=== PATIENT | male | born 1990 | race Caucasian/White ===

== ENCOUNTER 2023-06-26 15:05 | Emergency (ER) | payer OTHER ==
[2023-06-26 15:14] VITALS: BP 103/64; TEMP 98.7; BMI 20.7
[2023-06-26] MEDS ORDERED: SODIUM CHLORIDE 0.9% 500 ML INFUS.BAG IV ONE (16:58)
[2023-06-26 17:18] LABS: BASO % 1.2 % (0-2.0); EOS % 0.3 % (0-4.5); HEMATOCRIT 40.5 % (35.4-49); HEMOGLOBIN 13.5 GM/dL (11.7-16.9); LYMPH % 20.3 % (8-40); MCH 28.8 pg (25.7-33.7); MCHC 33.3 g/dl (32.0-35.9); MEAN CELL VOLUME 86.5 fl (80-96); MEAN PLT VOLUME 9.3 fl (7.5-11.1); MONO % 12.7 % (3.8-10.2); NEUT % 65.5 % (42.8-82.8); PLATELET COUNT 234 10^3/uL (134-434); RBC 4.68 M/mm3 (4.00-5.60); RDW 13.3 % (11.9-15.9); WHITE BLOOD COUNT 7.2 K/mm3 (4.0-10.0)
[2023-06-26 17:33] LABS: POTASSIUM 4.5 mmol/L (3.5-5.1)
[2023-06-26 17:35] LABS: CALCIUM 9.2 mg/dL (8.5-10.1)
[2023-06-26 17:36] LABS: ALBUMIN 3.4 g/dl (3.4-5.0); MAGNESIUM 1.8 mg/dL (1.8-2.4)
[2023-06-26 17:39] LABS: CREATININE 0.9 mg/dL (0.55-1.3)
[2023-06-26 17:40] LABS: BILIRUBIN,TOTAL 0.7 mg/dL (0.2-1)
[2023-06-26 17:41] LABS: TOT PROT 6.9 g/dl (6.4-8.2)
[2023-06-26 17:47] LABS: N-TERMINAL BNP 3449.3 pg/ml (5-125)
[2023-06-26 19:21] VITALS: PULSE 49; RESP 18
== END 2023-06-26 19:21 | disposition left against medical advice (07) ==
LOC: JER 15:05
DX: R07.9 Chest pain, unspecified (principal); R00.2 Palpitations; R05.9 Cough, unspecified; R09.81 Nasal congestion; R51.9 Headache, unspecified; R53.81 Other malaise; R11.2 Nausea with vomiting, unspecified; I42.0 Dilated cardiomyopathy; Z20.822 Contact with and (suspected) exposure to COVID-19
CPT/HCPCS: 0241U-QW; 36415; 71046-TC-FY; 80053; 83735; 83880; 84484; 85025; 93005; 93010; 99285-25

== ENCOUNTER 2023-08-28 12:17 | Observation (INO) | payer OTHER ==
[2023-08-28] MEDS ORDERED: ADENOSINE 6 MG/2 ML VIAL IVPUSH ONE ×3 (12:28→12:51)
[2023-08-28 12:38] VITALS: BMI 21.3
[2023-08-28] MEDS ORDERED: MIDAZOLAM HCL 2 MG/2 ML SINGLE DOSE VIAL ONE (13:08)
[2023-08-28 13:13] LABS: BASO % 1.1 % (0-2.0); EOS % 4.7 % (0-4.5); HEMATOCRIT 48.8 % (35.4-49); HEMOGLOBIN 16.5 GM/dL (11.7-16.9); LYMPH % 59.4 % (8-40); MCH 28.9 pg (25.7-33.7); MCHC 33.8 g/dl (32.0-35.9); MEAN CELL VOLUME 85.4 fl (80-96); MONO % 4.5 % (3.8-10.2); NEUT % 30.3 % (42.8-82.8); PLATELET COUNT 235 10^3/uL (134-434); RBC 5.71 M/mm3 (4.00-5.60); RDW 14.7 % (11.9-15.9); WHITE BLOOD COUNT 6.5 K/mm3 (4.0-10.0)
[2023-08-28] MEDS: MIDAZOLAM HCL 2 MG/2 ML SINGLE DOSE VIAL IVPUSH ONE (13:14)
[2023-08-28 13:19] LABS: INR 1.09 (0.83-1.09); PROTHROMBIN TIME (PATIENT) 12.6 SEC (9.7-13.0)
[2023-08-28 13:22] LABS: ACTIVATED PTT 30.4 SECONDS (25.2-36.5)
[2023-08-28] MEDS: ADENOSINE 6 MG/2 ML VIAL IVPUSH ONE ×3 (13:24→13:25)
[2023-08-28] MEDS: SODIUM CHLORIDE 0.9% 500 ML INFUS.BAG IV ONE (13:25)
[2023-08-28 13:29] LABS: POTASSIUM 5.5 mmol/L (3.5-5.1)
[2023-08-28 13:31] LABS: BLOOD UREA NITROGEN 22.9 mg/dL (7-18); CALCIUM 9.5 mg/dL (8.5-10.1); MAGNESIUM 2.1 mg/dL (1.8-2.4)
[2023-08-28 13:34] LABS: CREATININE 1.1 mg/dL (0.55-1.3)
[2023-08-28 13:36] LABS: BILIRUBIN,TOTAL 0.6 mg/dL (0.2-1); TOT PROT 7.9 g/dl (6.4-8.2)
[2023-08-28 14:07] LABS: N-TERMINAL BNP 3903.2 pg/ml (5-125)
[2023-08-28 16:38] LABS: COCAINE, UR NEGATIVE (NEGATIVE)
[2023-08-28 16:39] LABS: METHADONE, UR NEGATIVE (NEGATIVE); OPIATES, URI NEGATIVE (NEGATIVE); PHENCYCLIDINE,URINE NEGATIVE (NEGATIVE); URINE AMPHETAMINES NEGATIVE (NEGATIVE); URINE BARBITURATES NEGATIVE (NEGATIVE)
[2023-08-28 16:59] LABS: URINE BENZODIAZEPINES POSITIVE (NEGATIVE)
[2023-08-28] MEDS ORDERED: CARVEDILOL 3.125 MG TABLET (FP) ONE (21:28)
[2023-08-28] MEDS: CARVEDILOL 3.125 MG TABLET (FP) PO SCH (21:32)
[2023-08-29 07:35] LABS: BASO % 0.9 % (0-2.0); EOS % 7.4 % (0-4.5); HEMATOCRIT 40.6 % (35.4-49); HEMOGLOBIN 13.4 GM/dL (11.7-16.9); LYMPH % 44.4 % (8-40); MCH 28.6 pg (25.7-33.7); MCHC 33.1 g/dl (32.0-35.9); MEAN CELL VOLUME 86.5 fl (80-96); MEAN PLT VOLUME 9.8 fl (7.5-11.1); MONO % 6.6 % (3.8-10.2); NEUT % 40.7 % (42.8-82.8); PLATELET COUNT 181 10^3/uL (134-434); RBC 4.69 M/mm3 (4.00-5.60); RDW 14.4 % (11.9-15.9); WHITE BLOOD COUNT 5.9 K/mm3 (4.0-10.0)
[2023-08-29 07:58] LABS: POTASSIUM 3.9 mmol/L (3.5-5.1)
[2023-08-29 08:04] LABS: BLOOD UREA NITROGEN 15.8 mg/dL (7-18); CALCIUM 8.3 mg/dL (8.5-10.1); MAGNESIUM 1.6 mg/dL (1.8-2.4)
[2023-08-29 08:07] LABS: CREATININE 0.9 mg/dL (0.55-1.3)
[2023-08-29 08:22] LABS: ALBUMIN 3.2 g/dl (3.4-5.0)
[2023-08-29] MEDS: ENOXAPARIN NA (PORCINE) 40 MG/0.4 ML DISP.SYRIN SQ SCH (10:15)
[2023-08-29] MEDS: FUROSEMIDE 20 MG TABLET (FP) PO SCH (10:23)
[2023-08-29] MEDS ORDERED: CARVEDILOL 3.125 MG TABLET (FP) ONE (22:02)
[2023-08-30] MEDS: MAGNESIUM 1GM/D5W 100ML - 100 ML IVPB IVPB ONE (00:18)
[2023-08-30 07:28] LABS: BASO % 0.7 % (0-2.0); EOS % 8.3 % (0-4.5); HEMATOCRIT 42.7 % (35.4-49); HEMOGLOBIN 14.7 GM/dL (11.7-16.9); LYMPH % 49.8 % (8-40); MCH 29.3 pg (25.7-33.7); MCHC 34.4 g/dl (32.0-35.9); MEAN CELL VOLUME 85.2 fl (80-96); MEAN PLT VOLUME 10.1 fl (7.5-11.1); MONO % 7.3 % (3.8-10.2); NEUT % 33.9 % (42.8-82.8); PLATELET COUNT 186 10^3/uL (134-434); RBC 5.02 M/mm3 (4.00-5.60); RDW 14.6 % (11.9-15.9); WHITE BLOOD COUNT 5.7 K/mm3 (4.0-10.0)
[2023-08-30 07:36] LABS: POTASSIUM 4.2 mmol/L (3.5-5.1)
[2023-08-30 07:46] LABS: BLOOD UREA NITROGEN 13.8 mg/dL (7-18); CALCIUM 8.4 mg/dL (8.5-10.1)
[2023-08-30 07:50] LABS: CREATININE 0.9 mg/dL (0.55-1.3)
[2023-08-30 20:07] VITALS: BP 112/63; RESP 22
[2023-08-30 21:20] VITALS: TEMP 97.6
[2023-08-30 21:23] VITALS: PULSE 76
== END 2023-08-30 21:00 | disposition short-term general hospital (02) ==
LOC: JER 12:17 → JERBED 13:51 → J2W 08-29 23:51
PROVIDERS: ADMIT Internal Medicine; ATTEND Internal Medicine
PROC: 5A2204Z Restoration of Cardiac Rhythm, Single (ICD-10-PCS; principal; 2023-08-28)
PROC: 3E033GC Introduction of Other Therapeutic Substance into Peripheral Vein, Percutaneous Approach (ICD-10-PCS; 2023-08-28)
PROC: 3E023GC Introduction of Other Therapeutic Substance into Muscle, Percutaneous Approach (ICD-10-PCS; 2023-08-28)
PROC: 3E0337Z Introduction of Electrolytic and Water Balance Substance into Peripheral Vein, Percutaneous Approach (ICD-10-PCS; 2023-08-28)
PROC: 3E033NZ Introduction of Analgesics, Hypnotics, Sedatives into Peripheral Vein, Percutaneous Approach (ICD-10-PCS; 2023-08-28)
DX: I50.20 Unspecified systolic (congestive) heart failure (principal); I42.0 Dilated cardiomyopathy; I47.10 Supraventricular tachycardia, unspecified; R00.8 Other abnormalities of heart beat
CPT/HCPCS: 36415; 71045-TC-FY; 80048; 80053; 80061; 80307; 82550; 82553; 83735; 83880; 84439; 84443; 84484; 85025; 85610; 85730; 87635; 92960; 93005; 93010; 93306-TC; 96372; 96374; 96375; 96376; 99291; G0378